=== PATIENT | female | born 1980 | race Caucasian/White ===

== ENCOUNTER 2017-08-19 13:17 | Emergency (ER) | payer BC, OTHER ==
[2017-08-19 13:35] VITALS: BP 108/71
[2017-08-19] MEDS ORDERED: Lidocaine 2% VISCOUS* 15 ML UDC PO ONE (13:50)
[2017-08-19] MEDS ORDERED: Al Hydrox/Mg Hydrox/Simet LIQ* 30 ML UDC PO ONE (13:51)
--- NOTE | 2017-08-19 14:06 | UC ---
Cardiac HPI - HPI Summary HPI Summary: Pt c/o sudden onset of sternal chest pain that began to day at work while lifting and moving heavy objects. Pt denies, nausea, left arm or jaw pain. Denies hx of CAD or CVD. - History of Current Complaint Chief Complaint: UCChestPain Stated Complaint: CHEST PAIN Time Seen by Provider: 08/19/17 13:36 Hx Obtained From: Patient Hx Last Menstrual Period: 08/16/17 Onset/Duration: Sudden Onset, Still Present Timing: Constant Initial Severity: Moderate Current Severity: Moderate Pain Intensity: 7 Chest Pain Location: Mid Sternal Aggravating Factor(s): Position Alleviating Factor(s): Nothing Associated Signs & Symptoms: Positive: Chest Pain Related History: Similar Episode/Dx as - muscle pain - Risk Factors Pulmonary Embolism Risk Factors: Smoking Cardiac Risk Factors: Smoking Atrial Fibrillation: Negative TAD Risk Factors: Smoking AMI/ACS Risk Factors: Smoking - Allergy/Home Medications Allergies/Adverse Reactions: Allergies Allergy/AdvReac Type Severity Reaction Status Date / Time No Known Allergies Allergy Verified 08/19/17 13:26 Home Medications: Home Medications Norethindrone [Deblitane] 0.35 mg PO DAILY 08/19/17 [History Confirmed 08/19/17] PMH/Surg Hx/FS Hx/Imm Hx Previously Healthy: Yes - Surgical History Surgical History: None - Family History Known Family History: Positive: Cardiac Disease - Social History Occupation: Employed Full-time Lives: With Family Alcohol Use: Daily Alcohol Amount: 2 BEERS A DAY Substance Use Type: None Smoking Status (MU): Light Every Day Tobacco Smoker Type: Cigarettes Amount Used/How Often: 1/2 PPD Have You Smoked in the Last Year: Yes Household Exposure Type: Cigarettes Review of Systems Constitutional: Negative Skin: Negative Eyes: Negative ENT: Negative Respiratory: Negative Cardiovascular: Chest Pain Gastrointestinal: Negative Genitourinary: Negative Motor: Negative Neurovascular: Negative Musculoskeletal: Myalgia Neurological: Negative Psychological: Negative Is Patient Immunocompromised?: No All Other Systems Reviewed And Are Negative: Yes Physical Exam Triage Information Reviewed: Yes Appearance: Well-Appearing Vital Signs: Initial Vital Signs Temp 98.4 F 08/19/17 13:27 Pulse 72 08/19/17 13:27 Resp 20 08/19/17 13:27 BP 108/71 08/19/17 13:27 Pulse Ox 98 08/19/17 13:27 Vital Signs Reviewed: Yes Eye Exam: Normal ENT: Positive: Hearing grossly normal Dental: Positive: Other: - missing teeth Neck exam: Normal Respiratory Exam: Normal Respiratory: Positive: Normal breath sounds, No respiratory distress Cardiovascular Exam: Normal Cardiovascular: Positive: RRR Musculoskeletal Exam: Normal Neurological Exam: Normal Psychological Exam: Normal Skin Exam: Normal - Assessment/Plan Course Of Treatment: Pt stated no improvement of chest discomfort after taking GI cocktail. Pain is not worse since onset and pain is reproducible with palpation. - Differential Diagnoses - Chest Pain Differential Diagnosis/HQI/PQRI: Acute NV, ACS, Angina, GI Disease, Pulmonary Embolism, Other: - GERD - Clinical Impression Provider Diagnoses: chest pain. costochondritis Discharge - Sign-Out/Discharge Documenting (check all that apply): Discharge/Admit/Transfer - Discharge Plan Condition: Stable Disposition: HOME Patient Education Materials: Chest Pain (ED) Forms: *Work Release Referrals: [facility] [Outside] - Billing Disposition and Condition Condition: STABLE Disposition: Home
== END 2017-08-19 14:25 | disposition home or self-care (01) ==
LOC: UCCORT 13:17
DX: R07.9 Chest pain, unspecified (principal); M94.0 Chondrocostal junction syndrome [Tietze]; F17.210 Nicotine dependence, cigarettes, uncomplicated
CPT/HCPCS: 93005; 99202; A9270-GY; G0463